=== PATIENT | male | born 1995 | race Caucasian/White ===

== ENCOUNTER 2020-05-20 14:03 | Emergency (ER) | payer SELFPAY ==
[~2020-05-20] VITALS: Ht 182.9 cm; Wt 87.5 kg
--- NOTE | 2020-05-20 14:40 | Emergency Department Note ---
History of Present Illnes History of Present Illness Chief Complaint: Laceration History of Present Illness This is a 24 year old male who presents the emergency department for a left for earm laceration. He states that he was at work using a knife and cut his left forearm. He applied pressure in the bleeding stopped. He is up-to-date on tetanus. Denies any other injuries he is otherwise health.. Piping Drafter Required: No Severity: mild Onset quality: sudden Timing of current episode: constant Progression: unchanged Chronicity: new Relieving factors: none Exacerbating factors: none Treatments prior to arrival: none Past Medical/Family History Physician Review I have reviewed the patient's past medical and family history. Any updates have been documented here. Past Medical History Recent Fever: No Clinical Suspicion of Infectio: No New/Unexplained Change in Ment: No Social History Smoking Cessation: Current every day smoker Counseling Performed: Yes Alcohol Use: None Any Illegal Drug Use: Yes Other Is patient up to date on immun: Yes Review of Systems Review of Systems Constitutional: Reports no symptoms EENTM: Reports no symptoms Cardiovascular: Reports no symptoms Respiratory: Reports no symptoms Gastrointestinal: Reports no symptoms Genitourinary: Reports no symptoms Musculoskeletal: Reports no symptoms Integumentary: Reports no symptoms Neurological: Reports no symptoms Psychological: Reports no symptoms Endocrine: Reports no symptoms Hematological/Lymphatic: Reports no symptoms Physical Exam Related Data Allergies: Coded Allergies: No Known Allergies (Unverified , 05/20/20) Triage Vital Signs Vital Signs Date Time Temp Pulse Resp B/P (MAP) Pulse Ox O2 Delivery O2 Flow Rate FiO2 05/20/20 14:17 98.1 72 16 161/90 99 Physical Exam CONSTITUTIONAL Constitutional: Present well-developed, Present well-nourished HENT HENT: Present normocephalic, Present atraumatic, Present oropharynx clear/moist, Present nose normal HENT L/R: Present left ext ear normal, Present right ext ear normal EYES Eyes: Reports PERRL, Reports conjunctivae normal NECK Neck: Present ROM normal PULMONARY Pulmonary: Present effort normal, Present breath sounds normal CARDIOVASCULAR Cardiovascular: Present regular rhythm, Present heart sounds normal, Present capillary refill normal, Present normal rate GASTROINTESTINAL Abdominal: Present soft, Present nontender, Present bowel sounds normal GENITOURINARY Genitourinary: Present exam deferred SKIN Skin: Present warm, Present dry MUSCULOSKELETAL Musculoskeletal: Present ROM normal, Present other (Laceration 3cm, linear to L distal forearm) NEUROLOGICAL Neurological: Present alert, Present oriented x 3, Present no gross motor or sensory deficits PSYCHOLOGICAL Psychological: Present mood/affect normal, Present judgement normal Procedures Laceration Laceration: Laceration 1 Site: upper extremity Side: left Size (cm): 3 Depth: simple, single layer Local anesthesia: bupivacaine 0.25% Pre-repair: irrigated extensively, deep structures intact Skin layer closed with: other (Prolene) Size (cm): 4-0 Number of sutures: 4 Technique: simple, interrupted Assessment & Plan Medical Decision Making MDM 24-year-old male presenting for recent laceration to left forearm. Left arm is grossly neurovascularly intact and no signs of neurovascular compromise. Range of motion of the hand is full. Wound was extensively irrigated and repaired with 4 4-0 Prolene sutures. His tetanus is up-to-date. He is instructed to return to the emergency department or follow-up with his primary care provider for suture removal in 7-10 days. Instructed him on keeping his wound clean and looking for signs of infection. Patient states agreement to plan he is provided for discharge. Reassessment Reassessment time: 16:30 Reassessment Well appearing, NAD Assessment & Plan Final Impression: (1) Laceration Depart Disposition: HOME, SELF-CARE Last Vital Signs Date Time Temp Pulse Resp B/P (MAP) Pulse Ox O2 Delivery O2 Flow Rate FiO2 05/20/20 14:17 98.1 72 16 161/90 99 Gopal Sow MD May 20, 2020 14:40
[2020-05-20] MEDS ORDERED: BUPIVACAINE 0.5%/EPI 30 ML SDV INJ ONE (14:45)
[2020-05-20] MEDS ORDERED: BUPIVACAINE 0.25%/EPI 30ML SDV INJ ONE (15:00)
== END 2020-05-20 16:10 | disposition home or self-care (01) ==
LOC: ER 14:15
DX: S51.812A Laceration without foreign body of left forearm, initial encounter (principal); W26.0XXA Contact with knife, initial encounter; Y99.0 Civilian activity done for income or pay

== ENCOUNTER 2024-12-23 10:42 | Emergency (ER) | payer OTHER ==
[~2024-12-23] VITALS: Ht 182.9 cm; Wt 99.8 kg
[~2024-12-23 10:42] MED LIST: NAPROXEN250 MG PO; ONDANSETRON ODT4 MG PO; TAMIFLU75 MG PO
[2024-12-23 10:58] VITALS: TEMP 98.1
[2024-12-23] MEDS: KETOROLAC TROMETHAMINE 60 MG/2 ML VIAL IM ONE (11:50)
[2024-12-23 11:53] VITALS: PULSE 63; RESP 15; O2SAT 100
[2024-12-23] MEDS ORDERED: METHOCARBAMOL750 MG PO (12:45)
== END 2024-12-23 13:05 | disposition home or self-care (01) ==
LOC: ER 11:16
DX: M25.512 Pain in left shoulder (principal); S46.812A Strain of other muscles, fascia and tendons at shoulder and upper arm level, left arm, initial encounter; Z87.19 Personal history of other diseases of the digestive system; F17.210 Nicotine dependence, cigarettes, uncomplicated
CPT/HCPCS: 71046; 99284; J1885